=== PATIENT | male | born 1985 ===

== ENCOUNTER 2017-11-16 12:36 | Emergency (ER) | payer OTHER ==
[2017-11-16 13:09] VITALS: RESP 18; O2SAT 99
[2017-11-16] MEDS ORDERED: Oxycodone/Acetaminophen 5/325 mg Tab PO STA (13:10)
[2017-11-16] MEDS ORDERED: Lidocaine 5% Patch TD STA (13:10)
--- NOTE | 2017-11-16 13:12 | ED PDOC ---
Arrival/HPI - General Chief Complaint: Back Pain Time Seen by Provider: 11/16/17 12:51 Historian: Patient - History of Present Illness Narrative History of Present Illness (Text): 11/16/17 13:09 32 y/o male, no significant pmh, nkda, c/o lower back pain x 3 weeks with heavy lifting. Aching pain, non-radiating, aggravated movement, no numbness or tingling, no urinary or bowel incontinence or retention, no rash, no hematuria, no night sweat, no pain medication taken at home, no other medical or psychological complaints. Past Medical History - Provider Review Nursing Documentation Reviewed: Yes - Infectious Disease Hx of Infectious Diseases: None - Cardiac Hx Cardiac Disorders: No - Pulmonary Hx Respiratory Disorders: No - HEENT Hx HEENT Disorder: No - Endocrine/Metabolic Hx Endocrine Disorders: No - Hematological/Oncological Hx Blood Disorders: No - Musculoskeletal/Rheumatological Hx Musculoskeletal Disorders: No - Gastrointestinal Hx Gastrointestinal Disorders: No - Genitourinary/Gynecological Hx Genitourinary Disorders: No - Psychiatric Hx Psychophysiologic Disorder: No Hx Substance Use: No - Anesthesia Hx Anesthesia: No Family/Social History - Physician Review Nursing Documentation Reviewed: Yes Family/Social History: Unknown Family HX Smoking Status: Unknown If Ever Smoked Hx Alcohol Use: No Hx Substance Use: No Allergies/Home Meds Allergies/Adverse Reactions: Allergies No Known Allergies Allergy (Verified 11/16/17 13:09) Review of Systems - Review of Systems Constitutional: absent: Fatigue, Fevers Eyes: absent: Vision Changes ENT: absent: Hearing Changes Respiratory: absent: SOB, Cough Cardiovascular: absent: Chest Pain Gastrointestinal: absent: Abdominal Pain, Nausea, Vomiting Musculoskeletal: Back Pain Skin: absent: Rash, Pruritis Neurological: absent: Headache Psychiatric: absent: Anxiety, Depression, Suicidal Ideation Physical Exam Vital Signs Reviewed: Yes Vital Signs Temp Pulse Resp BP Pulse Ox 11/16/17 15:09 98.6 F 68 18 140/80 99 11/16/17 15:08 98.6 F 68 18 140/80 99 11/16/17 13:03 99.1 F 66 18 150/83 99 11/16/17 12:37 99.1 F 66 18 150/83 99 Temperature: Afebrile Blood Pressure: Normal Pulse: Regular Respiratory Rate: Normal Appearance: Positive for: Well-Appearing, Non-Toxic, Comfortable Pain Distress: Moderate Mental Status: Positive for: Alert and Oriented X 3 - Systems Exam Head: Present: Atraumatic, Normocephalic Pupils: Present: PERRL Extroacular Muscles: Present: EOMI Conjunctiva: Present: Normal Mouth: Present: Moist Mucous Membranes Neck: Present: Normal Range of Motion Respiratory/Chest: Present: Clear to Auscultation, Good Air Exchange. No: Respiratory Distress, Accessory Muscle Use Cardiovascular: Present: Regular Rate and Rhythm, Normal S1, S2. No: Murmurs Abdomen: No: Tenderness, Distention, Peritoneal Signs Back: Present: Normal Inspection, Paraspinal Tenderness (+bilateral paraspinal near lumbar L3L4 region with no rash), Other (no saddling gait). No: CVA Tenderness, Midline Tenderness, Pain with Leg Raise, Decubitus Ulcer Upper Extremity: Present: Normal Inspection. No: Cyanosis, Edema Lower Extremity: Present: Normal Inspection. No: Edema Neurological: Present: GCS=15, CN II-XII Intact, Speech Normal, Motor Func Grossly Intact, Gait Normal, Memory Normal Skin: Present: Warm, Dry, Normal Color. No: Rashes Psychiatric: Present: Alert, Oriented x 3, Normal Insight, Normal Concentration Medical Decision Making ED Course and Treatment: 11/16/17 13:11 -xray -Toradol/percocet/lidoderm -observe and reassess 11/16/17 14:42 -LS spine: No evidence of acute fractures. Possible small left renal calcification. Followup renal ultrasound recommended -Pt. feels much better, no pain, walking independently with normal gait and posture, no focal neurological deficits. -Pt. stated that the last bowel movement was this morning, no abdominal pain. -Discharge home with motrin, flexeril, lidoderm, heat compression, follow up with your own pmd and orthopedic within 2 days, follow up the renal sonogram outpatient with your own pmd, return to the ER for any new or worsening signs or symptoms - RAD Interpretation Radiology Orders: 11/16/17 13:10 LS SPINE WITH OBL > 18 YRS OLD [RAD] Stat PROCEDURE: Radiographs of the Lumbar Spine. HISTORY: Lower back pain x 3 weeks COMPARISON: No prior. FINDINGS: BONES: Normal alignment. No listhesis. No fracture. DISC SPACES: Disc space heights maintained. OTHER FINDINGS: Note made of what may represent a small approximately 4.2 mm calcification overlying the lower pole left kidney. Followup renal ultrasound recommended for further evaluation. Marj. IMPRESSION: No evidence of acute fractures. Possible small left renal calcification. Followup renal ultrasound recommended Senior Electrical Design Engineer: Radiologist - Medication Orders Current Medication Orders: Discontinued Medications Ketorolac Tromethamine (Toradol) 60 mg IM STAT STA Stop: 11/16/17 13:11 Last Admin: 11/16/17 13:28 Dose: 60 mg MAR Pain Assessment Document 11/16/17 13:28 SRE (Rec: 11/16/17 13:28 SRE [id number]) Pain Reassessment Is this a pain reassessment? Yes Sleep Is patient sleeping during reassessment? No Presence of Pain Presence of Pain Yes Pain Scale Used Pain Scale Used Numeric Location Pain Location Body Site Back Description Description Intermittent IM Administration Charges Document 11/16/17 13:28 SRE (Rec: 11/16/17 13:28 SRE [id number]) Injection Site MAR Injection Site Right Gluteus Alen Charges for Administration # of IM Administrations 1 Lidocaine (Lidoderm) 1 ea TD STAT STA Stop: 11/16/17 13:11 Last Admin: 11/16/17 13:27 Dose: 1 ea MAR Transdermal Patch Site Document 11/16/17 13:27 SRE (Rec: 11/16/17 13:27 SRE [id number]) Transdermal Patch Site Transdermal Patch Site Left Lower Back Oxycodone/Acetaminophen (Percocet 5/325 Mg Tab) 1 tab PO STAT STA Stop: 11/16/17 13:11 Last Admin: 11/16/17 13:27 Dose: 1 tab MAR Pain Assessment Document 11/16/17 13:27 SRE (Rec: 11/16/17 13:27 SRE [id number]) Pain Reassessment Is this a pain reassessment? Yes Sleep Is patient sleeping during reassessment? 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 Disposition/Present on Arrival - Present on Arrival Any Indicators Present on Arrival: No History of DVT/PE: No History of Uncontrolled Diabetes: No Urinary Catheter: No History of Decub. Ulcer: No History Surgical Site Infection Following: None - Disposition Have Diagnosis and Disposition been Completed?: Yes Diagnosis: Low back pain, Abnormal x-ray Disposition: HOME/ ROUTINE Disposition Time: 13:11 Patient Plan: Discharge Condition: IMPROVED Additional Instructions: -Discharge home with motrin, flexeril, lidoderm, heat compression, follow up with your own pmd and orthopedic within 2 days, follow up the renal sonogram outpatient with your own pmd, return to the ER for any new or worsening signs or symptoms Prescriptions: Cyclobenzaprine [Cyclobenzaprine HCl] 10 mg PO TID PRN #21 tab PRN Reason: Other Ibuprofen [Motrin Tab] 600 mg PO QID PRN #30 tab PRN Reason: Other Lidocaine 5% [Lidoderm] 1 patch TP DAILY PRN #14 patch PRN Reason: Other Referrals: [facility] [place] [facility] [place] - Follow up with primary Lucia Bell MD [Staff Provider] - Follow up with primary Forms: WORK NOTE
[2017-11-16 15:08] VITALS: BP 140/80; PULSE 68; TEMP 98.6
--- NOTE | 2017-11-16 16:43 | RAD ---
PROCEDURE: Radiographs of the Lumbar Spine. HISTORY: Lower back pain x 3 weeks COMPARISON: No prior. FINDINGS: BONES: Normal alignment. No listhesis. No fracture. DISC SPACES: Disc space heights maintained. OTHER FINDINGS: Note made of what may represent a small approximately 4.2 mm calcification overlying the lower pole left kidney. Followup renal ultrasound recommended for further evaluation. Marj. IMPRESSION: No evidence of acute fractures. Possible small left renal calcification. Followup renal ultrasound recommended note that this report was placed PA review folder followup.
== END 2017-11-16 15:09 | disposition home or self-care (01) ==
LOC: ED 12:36
DX: M54.5 Low back pain (principal); R93.8 Abnormal findings on diagnostic imaging of other specified body structures
CPT/HCPCS: 72110; 96372; 99283; J1885